=== PATIENT | male | born 1960 | race Caucasian/White ===

== ENCOUNTER 2019-06-19 18:53 | Observation (INO) ==
[2019-06-19] MEDS ORDERED: Acetaminophen 325 MG TABLET PO PRN (21:42)
[2019-06-19] MEDS ORDERED: Naloxone 0.4 MG/ML INJ IVP PRN (21:49)
[2019-06-19] MEDS ORDERED: Albuterol 2.5 MG/3 ML NEBULIZER IH PRN (21:55)
[2019-06-19] MEDS: Ipratropium/Albuterol Neb 3 ML IH SCH (22:17)
[2019-06-19 23:26] LABS: Bilirubin,Urine Negative (Negative); Blood,Urine Negative (Negative); Clarity,Urine Clear (Clear); Color,Urine Yellow (Yellow); Glucose,Urine (UA) Normal (Normal); Ketones,Urine Negative (Negative); Leukocyte Esterase,Urine Negative (Negative); Nitrite,Urine Negative (Negative); Protein,Urine Negative (Neg-Trace); Specific Gravity,Urine 1.026 (1.010-1.025); Urobilinogen,Urine Normal (Normal)
[2019-06-19 23:44] LABS: Amphetamine Screen,Urine Negative ng/mL (Cutoff=1000); Barbiturate Screen,Urine Negative ng/mL (Cutoff=200); Benzodiazepines Screen,Urine Negative ng/mL (Cutoff=200); Cannabinoid Screen,Urine Positive ng/mL (Cutoff = 50); Cocaine Screen,Urine Negative ng/mL (Cutoff= 300); Opiate Screen,Urine Negative ng/mL (Cutoff=300); Phencyclidine Screen,Urine Negative ng/mL (Cutoff=25)
[2019-06-20] MEDS ORDERED: tiZANidine 4 MG TABLET PO PRN (01:36)
[2019-06-20] MEDS: Gabapentin 100 MG CAPSULE PO SCH ×3 (02:15→21:36)
[2019-06-20] MEDS: Mirtazapine 15 MG TABLET PO SCH ×2 (02:15→21:36)
[2019-06-20] MEDS: Fluticasone Propionate Nasal 50 MCG/SPRAY BOTTLE NS SCH ×3 (02:31→21:36)
[2019-06-20] MEDS: Ipratropium/Albuterol Neb 3 ML IH SCH ×4 (04:01→22:50)
[2019-06-20] MEDS: *HR* Heparin 5,000 UNIT/ML VIAL SQ SCH ×2 (05:29→17:54)
[2019-06-20 07:06] LABS: Basophils # 0.1 K/mcL (0.0-0.2); Basophils % 0.7 %; Eosinophils # 0.9 K/mcL (0.0-0.6); Eosinophils % 8.9 %; Hematocrit 42.4 % (37.5-50.1); Hemoglobin 13.8 g/dL (12.9-16.9); Immature Granulocytes % 0.4 % (0-4); Lymphocytes # 2.2 K/mcL (0.6-4.6); Lymphocytes % 21.2 %; Mean Corpuscular HGB Conc 32.5 g/dL (31.6-35.5); Mean Corpuscular Hemoglobin 28.3 pg (28.0-33.3); Mean Corpuscular Volume 87.1 fL (83.0-100.0); Mean Platelet Volume 9.4 fL (9.4-12.4); Monocytes # 0.7 K/mcL (0.0-1.3); Monocytes % 6.5 %; Neutrophils # 6.3 K/mcL (1.6-8.9); Platelet Count 262 K/mcL (140-400); Red Blood Count 4.87 M/mcL (4.19-5.50); Red Cell Distribution Width 13.9 % (11.5-14.5); Segmented Neutrophils % 62.3 %; White Blood Count 10.1 K/mcL (4.3-11.1)
[2019-06-20 07:09] LABS: INR 1.1; Prothrombin Time 12.3 Seconds (9.4-12.1)
[2019-06-20 07:34] LABS: Alanine Aminotransferase 6 Units/L (7-52); Albumin 3.5 g/dL (3.5-5.7); Albumin/Globulin Ratio 1.5 (1.1-2.2); Alkaline Phosphatase 81 Units/L (34-104); Aspartate Amino Transferase 9 Units/L (13-39); BUN/Creatinine Ratio 13 (6-26); Bilirubin,Total 0.3 mg/dL (0.3-1.0); Blood Urea Nitrogen 14 mg/dL (8-23); Calcium 8.6 mg/dL (8.6-10.3); Carbon Dioxide 27 mEq/L (23-29); Chloride 103 mEq/L (98-107); Chol/HDL Ratio 4.5 (0-4.9); Cholesterol 141 mg/dL (< 200); Globulin 2.3 g/dL (2.4-3.5); Glucose 138 mg/dL (70-105); HDL Cholesterol 31 mg/dL (40-59); LDL Cholesterol,Calculated 87 mg/dL (0-99); Osmolality,Calculated 291 (280-300); Potassium 3.6 mEq/L (3.5-5.1); Sodium 139 mEq/L (136-145); Total Protein 5.8 g/dL (6.4-8.9); Triglycerides 113 mg/dL (< 150); Troponin I < 0.03 ng/mL (< 0.04); eGFR For African Americans > 60 (> 60); eGFR For Non-African Americans > 60 (> 60)
[2019-06-20 09:32] LABS: Estimated Average Glucose 128 mg/dl
[2019-06-20] MEDS: Aspirin 81 MG TAB.CHEW PO SCH (12:41)
[2019-06-20] MEDS ORDERED: *HR* Dextrose 50 % in Water (Syg) 50 ML SYRINGE IVP PRN (14:29)
[2019-06-20] MEDS ORDERED: Dextrose Gel 15 GM/37.5 ML TUBE PO PRN ×2 (14:29)
[2019-06-20] MEDS ORDERED: D5% in Water 1,000 ML IVC PRN (14:29)
[2019-06-20] MEDS ORDERED: GI Cocktail 40 ML EACH PO ONE (15:20)
[2019-06-20] MEDS: Insulin LISPRO 300 UNITS/3 ML VIAL SQ SCH (17:47)
[2019-06-20] MEDS ORDERED: Insulin LISPRO 300 UNITS/3 ML VIAL SQ SCH (21:00)
[2019-06-20] MEDS: Budesonide/Formoterol 160/4.5 1 PUFF INH IH SCH (22:52)
[2019-06-21] MEDS: Ipratropium/Albuterol Neb 3 ML IH SCH ×2 (03:54→09:37)
[2019-06-21] MEDS: *HR* Heparin 5,000 UNIT/ML VIAL SQ SCH (05:31)
[2019-06-21 07:21] VITALS: BP 106/74
[2019-06-21] MEDS: Insulin LISPRO 300 UNITS/3 ML VIAL SQ SCH ×2 (07:21→13:14)
[2019-06-21] MEDS: Fluticasone Propionate Nasal 50 MCG/SPRAY BOTTLE NS SCH (09:15)
[2019-06-21] MEDS: Aspirin 81 MG TAB.CHEW PO SCH (09:15)
[2019-06-21] MEDS: Gabapentin 100 MG CAPSULE PO SCH (09:15)
[2019-06-21] MEDS: Budesonide/Formoterol 160/4.5 1 PUFF INH IH SCH (09:37)
== END 2019-06-21 15:08 | disposition home or self-care (01) ==
LOC: 3BNU → SUATTDRO 20:10
PROVIDERS: ADMIT Internal Medicine; ATTEND Internal Medicine